=== PATIENT | female | born 1985 | race African-American/Black ===

== ENCOUNTER 2017-05-17 12:56 | Emergency (ER) | payer OTHER ==
[~2017-05-17] VITALS: Ht 154.9 cm; Wt 52.2 kg
[2017-05-17 12:57] VITALS: BP 97/76
--- NOTE | 2017-05-17 13:22 | NUR ---
ARRIVED TO ER WITH C/O AMB PAIN ALL OVER HAS HX OF GASTROPARESIS AND PANCREATITIS FEEDING TUBE IN PLACED PT STATED FEELING N/V FOR DAYS DR AYOUB AT BEDSIDE STATED WILL RUN SOME TEST CALL LIGHT IN REACH AWAITING LAB.
[2017-05-17] MEDS ORDERED: NACL 0.9% 1,000 ML IV ONE (13:29)
[2017-05-17] MEDS ORDERED: ONDANSETRON 4 MG/2 ML VIAL IVP ONE (13:30)
[2017-05-17] MEDS ORDERED: HYDROmorphone 1 MG/ML AMP IVP ONE (13:30)
[2017-05-17 14:12] LABS: BASOPHILS # (AUTO) 0.2 K/uL (0.00-0.22); MONOCYTES # (AUTO) 0.4 K/uL (0.8-1.0)
[2017-05-17 14:16] LABS: BASOPHILS % (AUTO) 4.9 % (0.0-2.0); EOSINOPHILS % (AUTO) 1.1 % (0.0-4.0); HEMATOCRIT 31.2 % (36-48); LYMPHOCYTES # (AUTO) 1.6 K/uL (2.5-16.5); LYMPHOCYTES % (AUTO) 39.6 % (20.5-51.1); MEAN CORPUSCULAR HEMOGLOBIN 26 pg (27-31); MEAN CORPUSCULAR HGB CONC 32 g/dL (33-37); MEAN CORPUSCULAR VOLUME 82 fL (80-94); MONOCYTES % (AUTO) 9.2 % (1.7-9.3); NEUTROPHILS # (AUTO) 1.9 K/uL (1.8-7.7); NEUTROPHILS % (AUTO) 45.2 % (42.2-75.2); PLATELET COUNT (AUTO) 325 K/uL (140-450); RED CELL DISTRIBUTION WIDTH 15.2 % (11.6-13.7); WHITE BLOOD COUNT (AUTO) 4.1 K/uL (4.8-10.8)
--- NOTE | 2017-05-17 14:22 | NUR ---
DOWN TO CAT SCAN
[2017-05-17 14:36] LABS: ANION GAP 13.3 (8-16); CARBON DIOXIDE 23.8 mmol/L (21-32); CREATININE 0.6 mg/dL (0.6-1.3); POTASSIUM 4.1 mmol/L (3.5-5.1)
[2017-05-17 14:43] LABS: ALBUMIN 2.9 g/dL (3.4-5.0); TOTAL BILIRUBIN 0.1 mg/dL (0.0-1.0)
--- NOTE | 2017-05-17 15:05 | NUR ---
1505: LATE ENTRY END TIME N/S 0.9% 1L GIVEN
[2017-05-17 15:32] LABS: APPEARANCE,URINE CLEAR (CLEAR); BILIRUBIN,URINE NEGATIVE (NEGATIVE); BLOOD, URINE NEGATIVE (NEGATIVE); COLOR,URINE YELLOW (YELLOW); LEUKOCYTE ESTERASE ,URINE NEGATIVE (NEGATIVE); NITRITE, URINE NEGATIVE (NEGATIVE); PH,URINE 6.5 (5.0-9.0); UGLUCOSE NEGATIVE (NEGATIVE)
[2017-05-17] MEDS ORDERED: MORPHINE SULFATE 4 MG/ML SYR IVP ONE (15:45)
[2017-05-17] MEDS ORDERED: ACETAMINOPHEN 325 MG TAB PO ONE (15:55)
[2017-05-17 16:12] VITALS: BP 128/82
--- NOTE | 2017-05-17 16:12 | NUR ---
ALL INFORMATION EXPLAIN TO PT BY DR ZIMMER S/S OF DISTRESS AFTER D/C IV REMOVED PAIN SCAL 05/28 ALL CAT SCAN NEG PER PT STATED WANTED MORPHINE BEFORE D/C HOME GAVE PRESCRIPTIONS WELL TYLENOL PT REFUSING TYLENOL AT THIS TIME.FOLLOW UP CARE GIVEN.
== END 2017-05-17 16:12 | disposition home or self-care (01) ==
LOC: MED 12:56
DX: R10.84 Generalized abdominal pain (principal); R11.10 Vomiting, unspecified; Z88.8 Allergy status to other drugs, medicaments and biological substances; Z90.49 Acquired absence of other specified parts of digestive tract; F17.200 Nicotine dependence, unspecified, uncomplicated
CPT/HCPCS: 36415; 74176; 80053; 81003; 81025; 83690; 85025; 96361; 96374; 96375; 99285; J1170; J2405; J7030; J2270

== ENCOUNTER 2017-05-21 23:25 | Emergency (ER) | payer OTHER ==
[~2017-05-21] VITALS: Ht 154.9 cm; Wt 52.2 kg
[2017-05-21 23:34] VITALS: BP 110/70
--- NOTE | 2017-05-21 23:59 | NUR ---
TO ER BED 3
[2017-05-22 00:10] VITALS: BP 110/70
--- NOTE | 2017-05-22 00:10 | NUR ---
PATIENT PRESENTS TO ED WITH MID AB PAIN X 2 WEEKS; PT HAS G-TUBE WITH VOMITING MED HX: ASTHMA; SZ; HYPERTHYROIDISM PT SKIN IS PINK/WARM/DRY; AAOX4 WITH EVEN AND STEADY GAIT; LUNGS CLEAR BL; HR EVEN AND REGULAR; PT DENIES ANY FEVER, CP, SOB, OR COUGH AT THIS TIME; PATIENT STATES PAIN OF 10/10 AT THIS TIME; VSS; PATIENT POSITIONED FOR COMFORT; HOB ELEVATED; BEDRAILS UP X2; BED DOWN. ER MD MADE AWARE OF PT STATUS.
[2017-05-22] MEDS ORDERED: NACL 0.9% 1,000 ML IV ONE (01:15)
[2017-05-22] MEDS ORDERED: MORPHINE SULFATE 4 MG/ML SYR IVP ONE (01:15)
[2017-05-22] MEDS ORDERED: ONDANSETRON 4 MG/2 ML VIAL IVP ONE (01:15)
[2017-05-22] MEDS ORDERED: diphenhydrAMINE 50 MG/ML VIAL IVP ONE (01:40)
[2017-05-22 01:42] LABS: HEMATOCRIT 29.8 % (36-48); HEMOGLOBIN 9.8 g/dL (12.0-16.0); MEAN CORPUSCULAR HEMOGLOBIN 28 pg (27-31); MEAN CORPUSCULAR HGB CONC 33 g/dL (33-37); MEAN CORPUSCULAR VOLUME 84 fL (80-94); PLATELET COUNT (AUTO) 323 K/uL (140-450); RED BLOOD CELL COUNT(AUTO) 3.57 MIL/uL (4.20-5.40); RED CELL DISTRIBUTION WIDTH 15.1 % (11.6-13.7); WHITE BLOOD COUNT (AUTO) 4.3 K/uL (4.8-10.8)
[2017-05-22 01:43] LABS: APPEARANCE,URINE CLEAR (CLEAR); BILIRUBIN,URINE NEGATIVE (NEGATIVE); BLOOD, URINE NEGATIVE (NEGATIVE); COLOR,URINE YELLOW (YELLOW); LEUKOCYTE ESTERASE ,URINE NEGATIVE (NEGATIVE); NITRITE, URINE NEGATIVE (NEGATIVE); UGLUCOSE NEGATIVE (NEGATIVE)
[2017-05-22 01:53] LABS: ANION GAP 11.7 (8-16); CARBON DIOXIDE 24.1 mmol/L (21-32); CHLORIDE 107 mmol/L (98-107); CREATININE 0.7 mg/dL (0.6-1.3); GFR ARICAN-AMERICAN 124 mL/min (>90); GLUCOSE 95 mg/dL (74-106); POTASSIUM 3.8 mmol/L (3.5-5.1); SODIUM SERUM 139 mmol/L (136-145); UREA NITROGEN, BLOOD 10 mg/dL (7-18)
[2017-05-22 01:54] LABS: EOSINOPHILS % (MANUAL) 2 % (0-4); LYMPHOCYTES % (MANUAL) 48 % (20-46); MONOCYTES % (MANUAL) 11 % (5-12)
--- NOTE | 2017-05-22 01:54 | NUR ---
IV 22GA LT 1 ST-DONE, IVP MEDS GIVEN
--- NOTE | 2017-05-22 01:56 | NUR ---
PT TO CT VIA [facility]INO IN STABLE CONDITION
[2017-05-22 01:59] LABS: ASPARTATE AMINOTRANSFERASE 12 U/L (15-37); LIPASE 323 U/L (73-393); TOTAL BILIRUBIN 0.1 mg/dL (0.0-1.0)
[2017-05-22 02:00] LABS: ACETONE, SERUM NEGATIVE (NEGATIVE)
--- NOTE | 2017-05-22 02:04 | NUR ---
PT RETURNED FROM CT VIA [facility] IN STABLE CONDITION
--- NOTE | 2017-05-22 03:19 | NUR ---
Patient discharged with v/s stable. Written and verbal after care instructions given and explained. Patient alert, oriented and verbalized understanding of instructions. Ambulatory with steady gait. All questions addressed prior to discharge. ID band removed. Patient advised to follow up with PMD. Rx of BISCODYL AND NORCO given. Patient educated on indication of medication including possible reaction and side effects. Opportunity to ask questions provided and answered.
== END 2017-05-22 03:20 | disposition home or self-care (01) ==
LOC: MED 23:25
DX: K59.00 Constipation, unspecified (principal); Z88.6 Allergy status to analgesic agent; Z88.8 Allergy status to other drugs, medicaments and biological substances; Z90.49 Acquired absence of other specified parts of digestive tract
CPT/HCPCS: 36415; 74176; 80053; 81003; 82009; 83690; 85025; 96361; 96374; 96375; 99285; J1200; J2270; J2405; J7030; 81025

== ENCOUNTER 2018-07-20 01:31 | Emergency (ER) | payer OTHER ==
[~2018-07-20] VITALS: Ht 154.9 cm; Wt 52.2 kg
[2018-07-20 01:31] VITALS: BP 126/85
--- NOTE | 2018-07-20 01:31 | NUR ---
BIB EMS. PICKED UP AT [facility] IN THE BOX. C/O LEFT FLANK PAIN X1 WK. DISCHARGED FROM [facility] X2 DAYS AGO. STATES UNRELIEVED ABD PAIN WITH N/V RADIATING TO LEFT FLANK. ALSO C/O BURNING WITH URINATION. A&OX4. VSS. POSITIONED IN BED FOR COMFORT. X1 SIDE RAIL UP. ER MD AWARE. CONTINUE TO MONITOR.
[2018-07-20] MEDS ORDERED: NACL 0.9% 1,000 ML IV ONE (01:40)
[2018-07-20] MEDS ORDERED: MORPHINE SULFATE 4 MG/ML SYR IVP ONE (01:40)
[2018-07-20 02:07] LABS: BASOPHILS % (AUTO) 1.1 % (0.0-2.0); EOSINOPHILS # (AUTO) 0.2 K/uL (0-0.4); EOSINOPHILS % (AUTO) 4.6 % (0.0-4.0); HEMOGLOBIN 12.1 g/dL (12.0-16.0); LYMPHOCYTES % (AUTO) 58.7 % (20.5-51.1); MEAN CORPUSCULAR HEMOGLOBIN 27 pg (27-31); MEAN CORPUSCULAR HGB CONC 33 g/dL (33-37); MEAN CORPUSCULAR VOLUME 80.8 fL (80-94); MONOCYTES # (AUTO) 0.3 K/uL (0.8-1.0); NEUTROPHILS # (AUTO) 0.9 K/uL (1.8-7.7); NEUTROPHILS % (AUTO) 26.6 % (42.2-75.2); PLATELET COUNT (AUTO) 306 K/uL (140-450); RED BLOOD CELL COUNT(AUTO) 4.58 MIL/uL (4.20-5.40); RED CELL DISTRIBUTION WIDTH 19.7 % (11.6-13.7); WHITE BLOOD COUNT (AUTO) 3.4 K/uL (4.8-10.8)
[2018-07-20 02:19] LABS: ANION GAP 11.4 (8-16); CARBON DIOXIDE 25.2 mmol/L (21-32); CREATININE 0.7 mg/dL (0.6-1.3); POTASSIUM 3.6 mmol/L (3.5-5.1)
[2018-07-20] MEDS ORDERED: diphenhydrAMINE 50 MG/ML VIAL IVP ONE (02:20)
[2018-07-20 02:25] LABS: ALBUMIN 3.4 g/dL (3.4-5.0); TOTAL BILIRUBIN 0.2 mg/dL (0.0-1.0)
[2018-07-20] MEDS ORDERED: fentaNYL 0.05 MG/ML VIAL IVP ONE (03:10)
[2018-07-20 04:00] VITALS: BP 126/92
--- NOTE | 2018-07-20 04:00 | NUR ---
DISCHARGE PAPERS GIVEN TO PT. 0/10 PAIN. AFEBRILE. VSS. NO N/V. INSTRUCTED TO F/U WITH PCP AND WHEN TO RETURN TO ER. PT VERBALIZED UNDERSTANDING OF DC INSTRUCTIONS. ALL QUESTIONS ANSWERED.
== END 2018-07-20 04:00 | disposition home or self-care (01) ==
LOC: MED 01:31
DX: R10.9 Unspecified abdominal pain (principal); R11.2 Nausea with vomiting, unspecified; J45.909 Unspecified asthma, uncomplicated; E11.9 Type 2 diabetes mellitus without complications; E07.9 Disorder of thyroid, unspecified; Z90.49 Acquired absence of other specified parts of digestive tract; Z79.899 Other long term (current) drug therapy; Z93.1 Gastrostomy status
CPT/HCPCS: 36415; 80053; 83690; 85025; 96374; 96375; 99283; J1200; J2270; J3010; J7030

== ENCOUNTER 2018-11-25 00:01 | Emergency (ER) | payer OTHER ==
[~2018-11-25] VITALS: Ht 154.9 cm; Wt 52.2 kg
[2018-11-25 00:06] VITALS: BP 108/71
[2018-11-25 01:04] LABS: APPEARANCE,URINE SL CLOUDY (CLEAR); BILIRUBIN,URINE NEGATIVE (NEGATIVE); BLOOD, URINE NEGATIVE (NEGATIVE); COLOR,URINE YELLOW (YELLOW); LEUKOCYTE ESTERASE ,URINE NEGATIVE (NEGATIVE); NITRITE, URINE NEGATIVE (NEGATIVE); UGLUCOSE NEGATIVE (NEGATIVE)
[2018-11-25 01:16] LABS: RBC,URINE 0-5 /HPF (0-5)
[2018-11-25 01:17] LABS: WBC,URINE 0-5 /HPF (0-5)
[2018-11-25 01:18] LABS: URINE AMORPHOUS URATE 1+ /HPF (None Seen)
[2018-11-25 02:33] LABS: BASOPHILS % (AUTO) 0.4 % (0.0-2.0); EOSINOPHILS # (AUTO) 0.2 K/uL (0-0.4); HEMATOCRIT 33.2 % (36-48); MEAN CORPUSCULAR HEMOGLOBIN 29 pg (27-31); MEAN CORPUSCULAR HGB CONC 33 g/dL (33-37); MEAN CORPUSCULAR VOLUME 86.2 fL (80-94); MONOCYTES # (AUTO) 0.5 K/uL (0.8-1.0); MONOCYTES % (AUTO) 7.7 % (1.7-9.3); NEUTROPHILS # (AUTO) 3.3 K/uL (1.8-7.7); NEUTROPHILS % (AUTO) 55.9 % (42.2-75.2); PLATELET COUNT (AUTO) 314 K/uL (140-450); RED BLOOD CELL COUNT(AUTO) 3.85 MIL/uL (4.20-5.40); RED CELL DISTRIBUTION WIDTH 14.1 % (11.6-13.7)
[2018-11-25 02:43] LABS: ANION GAP 12.2 (8-16); CARBON DIOXIDE 24.9 mmol/L (21-32); CREATININE 0.5 mg/dL (0.6-1.3); POTASSIUM 4.1 mmol/L (3.5-5.1)
[2018-11-25 02:49] LABS: TOTAL BILIRUBIN 0.2 mg/dL (0.0-1.0)
[2018-11-25] MEDS ORDERED: MORPHINE SULFATE 4 MG/ML SYR IVP ONE (03:30)
[2018-11-25] MEDS ORDERED: ONDANSETRON 4 MG/2 ML VIAL IVP ONE (03:30)
[2018-11-25] MEDS ORDERED: diphenhydrAMINE 50 MG/ML VIAL IVP ONE (03:50)
[2018-11-25 04:26] VITALS: BP 107/72
== END 2018-11-25 04:27 | disposition home or self-care (01) ==
LOC: MED 00:01
DX: O26.892 Other specified pregnancy related conditions, second trimester (principal); R10.13 Epigastric pain; R19.7 Diarrhea, unspecified; O21.8 Other vomiting complicating pregnancy; O99.412 Diseases of the circulatory system complicating pregnancy, second trimester; R07.9 Chest pain, unspecified; O99.512 Diseases of the respiratory system complicating pregnancy, second trimester; J45.909 Unspecified asthma, uncomplicated; Z3A.19 19 weeks gestation of pregnancy; Z90.49 Acquired absence of other specified parts of digestive tract; Z88.8 Allergy status to other drugs, medicaments and biological substances; Z88.6 Allergy status to analgesic agent
CPT/HCPCS: 36415; 80053; 81001; 81025; 83690; 85025; 87086; 96374; 96375; 99283; J1200; J2270; J2405

== ENCOUNTER 2018-11-30 18:47 | Emergency (ER) | payer OTHER ==
[~2018-11-30] VITALS: Ht 154.9 cm; Wt 47.2 kg
[2018-11-30 18:58] VITALS: BP 129/80
--- NOTE | 2018-11-30 19:05 | NUR ---
PT TAKEN TO BED 5
--- NOTE | 2018-11-30 19:30 | NUR ---
32 Y/O FEMALE BIB SELF A2 [facility] 04-18-2019 19 WKS C/O UPPER MIDDLE ABD PAIN 10/10 X COUPLE WEEKS. PT STATES SHE WAS RECENTLY ADMITTED TO [facility] FOR PANCREATITIS AND GASTROPARESIS. SHE STATES THIS IS THE SAME TYPE OF PAIN, BUT SHE WAS ALSO HAVING VAGINAL SPOTTING 2 DAYS AGO.A/O X4 AND IS ABLE TO FOLLOW COMMANDS WITH CLEAR SPEECH. BOWEL SOUNDS HEARD ON ALL FOUR QUADRATNS. PAIN ELICITED WHEN PALPATED ABDOMEN. MID EPIGASTRIC PAIN RADIATES TO THE BACK 4 SAM 04-18-2019 19 WKS .ERMD MADE AWARE OF STATUS. PLACED ON MONITOR. SIDERAILSX1. HX: PANCREATITIS, GASTROPARESIS AND ASTHMA RX: NORCO 10MG , ZOFRAN 4MG AND ALBUTEROL
[2018-11-30] MEDS ORDERED: NACL 0.9% 1,000 ML IV ONE (21:45)
[2018-11-30 22:10] LABS: APPEARANCE,URINE CLEAR (CLEAR); BILIRUBIN,URINE NEGATIVE (NEGATIVE); BLOOD, URINE NEGATIVE (NEGATIVE); COLOR,URINE YELLOW (YELLOW); LEUKOCYTE ESTERASE ,URINE NEGATIVE (NEGATIVE); NITRITE, URINE NEGATIVE (NEGATIVE); UGLUCOSE NEGATIVE (NEGATIVE)
[2018-11-30 22:10] LABS: BASOPHILS % (AUTO) 0.4 % (0.0-2.0); EOSINOPHILS # (AUTO) 0.2 K/uL (0-0.4); EOSINOPHILS % (AUTO) 3.2 % (0.0-4.0); HEMATOCRIT 28.9 % (36-48); HEMOGLOBIN 9.5 g/dL (12.0-16.0); LYMPHOCYTES # (AUTO) 1.8 K/uL (2.5-16.5); LYMPHOCYTES % (AUTO) 30.1 % (20.5-51.1); MEAN CORPUSCULAR HEMOGLOBIN 28 pg (27-31); MEAN CORPUSCULAR HGB CONC 33 g/dL (33-37); MEAN CORPUSCULAR VOLUME 85.6 fL (80-94); MONOCYTES # (AUTO) 0.6 K/uL (0.8-1.0); MONOCYTES % (AUTO) 10.8 % (1.7-9.3); NEUTROPHILS # (AUTO) 3.3 K/uL (1.8-7.7); NEUTROPHILS % (AUTO) 55.5 % (42.2-75.2); PLATELET COUNT (AUTO) 289 K/uL (140-450); RED BLOOD CELL COUNT(AUTO) 3.37 MIL/uL (4.20-5.40); RED CELL DISTRIBUTION WIDTH 13.7 % (11.6-13.7)
[2018-11-30 22:19] LABS: ANION GAP 12.3 (8-16); CARBON DIOXIDE 22.2 mmol/L (21-32); CREATININE 0.5 mg/dL (0.6-1.3); POTASSIUM 3.5 mmol/L (3.5-5.1)
[2018-11-30 22:25] LABS: ALBUMIN 2.5 g/dL (3.4-5.0); TOTAL BILIRUBIN 0.2 mg/dL (0.0-1.0)
--- NOTE | 2018-11-30 22:57 | NUR ---
HEART RATE 193; ERMD NOTIFIED.
[2018-11-30] MEDS ORDERED: diphenhydrAMINE 50 MG/ML VIAL ONE (23:07)
[2018-11-30] MEDS ORDERED: diphenhydrAMINE 50 MG/ML VIAL IVP ONE (23:10)
[2018-12-01 00:19] VITALS: BP 100/63
== END 2018-12-01 00:20 | disposition home or self-care (01) ==
LOC: MED 18:47
DX: O26.892 Other specified pregnancy related conditions, second trimester (principal); R10.10 Upper abdominal pain, unspecified; J45.909 Unspecified asthma, uncomplicated; Z3A.19 19 weeks gestation of pregnancy; Z87.19 Personal history of other diseases of the digestive system; Z88.6 Allergy status to analgesic agent; Z88.8 Allergy status to other drugs, medicaments and biological substances; Z90.49 Acquired absence of other specified parts of digestive tract
CPT/HCPCS: 36415; 80053; 81003; 81025; 82150; 83690; 85025; 96374; 99283; J1200; J7030

== ENCOUNTER 2018-12-02 06:25 | Emergency (ER) | payer OTHER ==
[~2018-12-02] VITALS: Ht 154.9 cm; Wt 52.2 kg
[2018-12-02 06:30] VITALS: BP 145/62
[2018-12-02] MEDS: ONDANSETRON 4 MG/2 ML VIAL IVP ONE (07:57)
[2018-12-02] MEDS: MORPHINE SULFATE 4 MG/ML SYR IVP ONE ×2 (08:02→10:52)
[2018-12-02] MEDS: diphenhydrAMINE 50 MG/ML VIAL IVP ONE ×2 (08:10→10:52)
[2018-12-02 08:26] LABS: BASOPHILS % (AUTO) 0.3 % (0.0-2.0); EOSINOPHILS # (AUTO) 0.2 K/uL (0-0.4); EOSINOPHILS % (AUTO) 3.2 % (0.0-4.0); HEMATOCRIT 30.7 % (36-48); HEMOGLOBIN 10.2 g/dL (12.0-16.0); LYMPHOCYTES # (AUTO) 1.2 K/uL (2.5-16.5); LYMPHOCYTES % (AUTO) 20.6 % (20.5-51.1); MEAN CORPUSCULAR HEMOGLOBIN 29 pg (27-31); MEAN CORPUSCULAR HGB CONC 33 g/dL (33-37); MEAN CORPUSCULAR VOLUME 86.2 fL (80-94); MONOCYTES # (AUTO) 0.5 K/uL (0.8-1.0); NEUTROPHILS # (AUTO) 3.8 K/uL (1.8-7.7); NEUTROPHILS % (AUTO) 66.9 % (42.2-75.2); PLATELET COUNT (AUTO) 296 K/uL (140-450); RED BLOOD CELL COUNT(AUTO) 3.57 MIL/uL (4.20-5.40); WHITE BLOOD COUNT (AUTO) 5.7 K/uL (4.8-10.8)
[2018-12-02] MEDS: NACL 0.9% 1,000 ML IV ONE (08:31)
[2018-12-02 08:42] LABS: ANION GAP 12.5 (8-16); CARBON DIOXIDE 23.6 mmol/L (21-32); CREATININE 0.5 mg/dL (0.6-1.3); POTASSIUM 4.1 mmol/L (3.5-5.1)
[2018-12-02 08:49] LABS: ALBUMIN 2.6 g/dL (3.4-5.0); TOTAL BILIRUBIN 0.2 mg/dL (0.0-1.0)
[2018-12-02 10:22] LABS: APPEARANCE,URINE HAZY (CLEAR); BILIRUBIN,URINE NEGATIVE (NEGATIVE); BLOOD, URINE NEGATIVE (NEGATIVE); COLOR,URINE YELLOW (YELLOW); LEUKOCYTE ESTERASE ,URINE 2+ (NEGATIVE); NITRITE, URINE NEGATIVE (NEGATIVE); UGLUCOSE NEGATIVE (NEGATIVE)
[2018-12-02 10:26] LABS: BARBITURATE, URINE NEG. ng/ml (NEG <=200); BENZODIAZEPINE, URINE NEG. ng/mL (NEG <=200); CANNABINOID, URINE NEG. ng/mL (NEG <=50); COCAINE, URINE NEG. ng/mL (NEG <=300); OPIATE, URINE POS. ng/mL (NEG <=2000); PHENCYCLIDINE SCREEN,URINE NEG. ng/mL (NEG <=25)
[2018-12-02 10:40] LABS: RBC,URINE 0-5 /HPF (0-5)
[2018-12-02 10:41] LABS: WBC,URINE 20-60 /HPF (0-5)
[2018-12-02 11:31] VITALS: BP 118/73
== END 2018-12-02 11:32 | disposition home or self-care (01) ==
LOC: MED 06:25
DX: O23.42 Unspecified infection of urinary tract in pregnancy, second trimester (principal); O16.2 Unspecified maternal hypertension, second trimester; O99.332 Smoking (tobacco) complicating pregnancy, second trimester; J45.909 Unspecified asthma, uncomplicated; F17.210 Nicotine dependence, cigarettes, uncomplicated; Z3A.19 19 weeks gestation of pregnancy; Z90.49 Acquired absence of other specified parts of digestive tract; Z88.5 Allergy status to narcotic agent; Z88.8 Allergy status to other drugs, medicaments and biological substances
CPT/HCPCS: 36415; 76805; 80053; 80305; 81001; 81025; 83690; 85025; 87086; 96374; 96375; 96376; 99284; J1200; J2270; J2405; J7030; Q0092

== ENCOUNTER 2018-12-08 21:23 | Emergency (ER) | payer OTHER ==
[~2018-12-08] VITALS: Ht 154.9 cm; Wt 52.2 kg
[2018-12-08 21:32] VITALS: BP 114/75
--- NOTE | 2018-12-08 21:35 | NUR ---
PT AMBULATED TO LOBBY.
--- NOTE | 2018-12-08 23:05 | NUR ---
PT AMBULATED TO ER BED 04
--- NOTE | 2018-12-08 23:47 | NUR ---
PT C/O RT ARM PAIN AND BRUISING THAT APPEARED 4 DAYS AGO. N/V/D X1 DAY. WITH PAIN IN UPPER ABD. BOWEL SOUNDS HEARD X4 QUAD. ABD ROUND NON TENDER. RR EVEN AND UNLABORED. RESTING IN BED WITH CHILD. PT 20 WEEKS . MEDHX: GASTROPERESIS, CHRONIC PANCREATITIS, ASTHMA ALLERGIES: HALDOL, TORADOL, REGLAN, COMPAZINE
[2018-12-09] MEDS ORDERED: ONDANSETRON 4 MG ODT PO ONE (00:10)
[2018-12-09] MEDS ORDERED: MORPHINE SULFATE 2 MG/ML SYR IM ONE (00:10)
--- NOTE | 2018-12-09 00:20 | NUR ---
PT RESTING IN BED, VSS.
[2018-12-09 00:46] LABS: BASOPHILS % (AUTO) 0.4 % (0.0-2.0); EOSINOPHILS # (AUTO) 0.3 K/uL (0-0.4); HEMATOCRIT 27.1 % (36-48); HEMOGLOBIN 8.9 g/dL (12.0-16.0); LYMPHOCYTES # (AUTO) 1.7 K/uL (2.5-16.5); LYMPHOCYTES % (AUTO) 33.9 % (20.5-51.1); MEAN CORPUSCULAR HEMOGLOBIN 28 pg (27-31); MEAN CORPUSCULAR HGB CONC 33 g/dL (33-37); MEAN CORPUSCULAR VOLUME 86.4 fL (80-94); MONOCYTES # (AUTO) 0.6 K/uL (0.8-1.0); NEUTROPHILS # (AUTO) 2.5 K/uL (1.8-7.7); NEUTROPHILS % (AUTO) 48.7 % (42.2-75.2); PLATELET COUNT (AUTO) 284 K/uL (140-450); RED BLOOD CELL COUNT(AUTO) 3.13 MIL/uL (4.20-5.40); RED CELL DISTRIBUTION WIDTH 14.2 % (11.6-13.7); WHITE BLOOD COUNT (AUTO) 5.1 K/uL (4.8-10.8)
[2018-12-09 01:04] LABS: ALBUMIN 2.2 g/dL (3.4-5.0); ANION GAP 11.8 (8-16); CARBON DIOXIDE 22.6 mmol/L (21-32); CREATININE 0.5 mg/dL (0.6-1.3); POTASSIUM 3.4 mmol/L (3.5-5.1); TOTAL BILIRUBIN 0.2 mg/dL (0.0-1.0)
--- NOTE | 2018-12-09 01:22 | NUR ---
Patient discharged with v/s stable. Written and verbal after care instructions given and explained. Patient verbalized understanding. Ambulatory with to home. All questions addressed prior to discharge. Advised to follow up with PMD.
[2018-12-09 01:23] VITALS: BP 114/75
== END 2018-12-09 01:22 | disposition home or self-care (01) ==
LOC: MED 21:23
DX: O26.892 Other specified pregnancy related conditions, second trimester (principal); S50.11XA Contusion of right forearm, initial encounter; R19.7 Diarrhea, unspecified; J45.909 Unspecified asthma, uncomplicated; O21.9 Vomiting of pregnancy, unspecified; O99.012 Anemia complicating pregnancy, second trimester; Z3A.22 22 weeks gestation of pregnancy; Z88.6 Allergy status to analgesic agent; Z88.8 Allergy status to other drugs, medicaments and biological substances; Z87.19 Personal history of other diseases of the digestive system; X58.XXXA Exposure to other specified factors, initial encounter; Y93.89 Activity, other specified; Y92.89 Other specified places as the place of occurrence of the external cause; Y99.8 Other external cause status
CPT/HCPCS: 36415; 80053; 83690; 85025; 96372; 99283; J2270; Q0162